=== PATIENT | female | born 1965 | race Caucasian/White ===

== ENCOUNTER 2017-05-09 12:49 | Emergency (ER) | payer OTHER ==
[2017-05-09 12:49] VITALS: BMI 25.7
[2017-05-09] MEDS ORDERED: Sodium Chloride 0.9% 500 ML IV ONE (13:58)
[2017-05-09] MEDS ORDERED: MethylPREDNISolone 40 mg Vial ONE (14:20)
[2017-05-09] MEDS ORDERED: Sodium Chloride 0.9% 1,000 ML ONE (14:20)
[2017-05-09 14:38] LABS: BASO % 0.4 % (0.0-2.0); EOS % 0.3 % (0.0-4.0); HEMATOCRIT 34.4 % (34.0-47.0); LYMPH # 0.5 K/uL (1.0-4.3); LYMPH % 11.9 % (20.0-40.0); MEAN CELL VOLUME 83.1 fL (81.0-99.0); MEAN CORPUSCULAR HEMOGLOBIN 27.4 pg (27.0-31.0); MEAN CORPUSCULAR HGB CONC 32.9 g/dL (33.0-37.0); MONO # 0.5 K/uL (0.0-0.8); MONO % 10.6 % (0.0-10.0); NRBC % 0.1 % (0.0-2.0); WHITE BLOOD COUNT 4.5 K/uL (4.8-10.8)
[2017-05-09 14:47] LABS: CHLORIDE 103 mmol/L (98-107); POTASSIUM 3.2 mmol/L (3.6-5.2); SODIUM 136 mmol/L (132-148)
[2017-05-09 14:49] LABS: ALB/GLOB RATIO 0.9 (1.0-2.1); ALKALINE PHOSPHATASE 73 U/L (38-126); AST/SGOT 78 U/L (14-36); BILIRUBIN,TOTAL 0.7 mg/dL (0.2-1.3); CARBON DIOXIDE 22 mmol/L (22-30); GFR AFRICAN-AMERICAN > 60
[2017-05-09 14:50] LABS: ALT/SGPT 94 U/L (9-52); BLOOD UREA NITROGEN 19 mg/dL (7-17); CALCIUM 8.7 mg/dl (8.6-10.4); GLUCOSE,RANDOM 100 mg/dL (65-105)
--- NOTE | 2017-05-09 15:50 | C.PDOC ---
History Of Present Illness 52 year old female presents to the ED for evaluation of cough that is productive of white sputum x 2 days. Patient notes symptoms are associated with post-tussive emesis. She denies fever, chills, hemoptysis, abdominal pain, diarrhea, or recent travel. Time Seen by Provider: 05/09/17 13:32 Chief Complaint (Nursing): Chest Pain History Per: Patient History/Exam Limitations: no limitations Onset/Duration Of Symptoms: Days (2) Current Symptoms Are (Timing): Still Present Recent travel outside of the [place]: No Additional History Per: Patient Past Medical History Reviewed: Historical Data, Nursing Documentation, Vital Signs Vital Signs: Last Vital Signs Temp 97.5 F L 05/09/17 16:25 Pulse 80 05/09/17 16:25 Resp 20 05/09/17 16:25 BP 97/59 L 05/09/17 16:25 Pulse Ox 96 05/09/17 18:10 - Medical History PMH: Anemia, Hypothyroidism Surgical History: No Surg Hx Family History: States: Unknown Family Hx - Social History Hx Alcohol Use: No Hx Substance Use: No - Immunization History Hx Tetanus Toxoid Vaccination: No Hx Influenza Vaccination: No Hx Pneumococcal Vaccination: No Review Of Systems Constitutional: Negative for: Fever, Chills Respiratory: Positive for: Cough, Sputum (white ) Gastrointestinal: Positive for: Vomiting (post-tussive ). Negative for: Abdominal Pain Physical Exam - Physical Exam Appears: Non-toxic, No Acute Distress, Other (constantly coughing ) Skin: Normal Color, Warm, Dry Head: Atraumatic, Normacephalic Eye(s): bilateral: Normal Inspection Ear(s): Bilateral: Normal Nose: Normal, No Discharge Oral Mucosa: Moist Throat: Normal, No Erythema, No Exudate Neck: Normal ROM, Supple Chest: Symmetrical, No Deformity, No Tenderness Cardiovascular: Rhythm Regular, No Murmur Respiratory: Normal Breath Sounds, No Rales, No Rhonchi, No Wheezing Gastrointestinal/Abdominal: Soft, No Tenderness, No Guarding, No Rebound Extremity: Normal ROM, Capillary Refill (less than 2 seconds ) Neurological/Psych: Oriented x3, Normal Speech, Normal Cognition Gait: Steady ED Course And Treatment - Laboratory Results Result Diagrams: 05/09/17 14:29 05/09/17 14:29 O2 Sat by Pulse Oximetry: 96 (on RA) Pulse Ox Interpretation: Normal - Other Rad CXR X-Ray: Interpreted by Me, Viewed By Me, Read By Radiologist Interpretation: HISTORY: SOB, cough, fever. COMPARISON: No prior. TECHNIQUE : Chest PA and lateral. FINDINGS: LUNGS: No active pulmonary disease. PLEURA: No significant pleural effusion identified. No pneumothorax apparent. CARDIOVASCULAR: Normal. OSSEOUS STRUCTURES: No significant abnormalities. VISUALIZED UPPER ABDOMEN: Normal. OTHER FINDINGS: None. IMPRESSION: No acute cardiopulmonary disease appreciated. Medical Decision Making Medical Decision Making: Progress: EKG, CXR ordered and reviewed. Solu-Medrol IVP and IV Fluids administered. On re-exam, the patient reports improvement of symptoms. Lungs are CTA, heart is RRR, abdomen is soft, non-tender and tolerating PO well. Ambulatory in the ED with steady gait. Follow up with the medical doctor/clinic within 1-2 days. Return if worsened. Disposition - Disposition Referrals: Blu Craig MD [Staff Provider] - Disposition: HOME/ ROUTINE Disposition Time: 15:47 Condition: GOOD Additional Instructions: Follow up with the medical doctor/ clinic within 1-2 days. Return if worsened. Prescriptions: Benzonatate [Tessalon Perles] 200 mg PO TID PRN #21 sgl PRN Reason: Cough Loratadine [Claritin] 10 mg PO DAILY #10 tab predniSONE [Prednisone] 20 mg PO BID #10 tab Instructions: Acute Bronchitis (ED) Forms: [facility] [employer] [facility] (Swedish) - Clinical Impression Clinical Impression: Bronchitis - PA / GARMENT FOLDER / Resident Statement MD/DO has reviewed & agrees with the documentation as recorded. - Scribe Statement The provider has reviewed the documentation as recorded by the Scribe (Melisa Craig) All medical record entries made by the Scribe were at my direction and personally dictated by me. I have reviewed the chart and agree that the record accurately reflects my personal performance of the history, physical exam, medical decision making, and the department course for this patient. I have also personally directed, reviewed, and agree with the discharge instructions and disposition.
--- NOTE | 2017-05-09 16:15 | RAD ---
HISTORY: SOB, cough, fever COMPARISON: No prior. TECHNIQUE: Chest PA and lateral FINDINGS: LUNGS: No active pulmonary disease. PLEURA: No significant pleural effusion identified. No pneumothorax apparent. CARDIOVASCULAR: Normal. OSSEOUS STRUCTURES: No significant abnormalities. VISUALIZED UPPER ABDOMEN: Normal. OTHER FINDINGS: None. IMPRESSION: No acute cardiopulmonary disease appreciated.
[2017-05-09 16:26] VITALS: BP 97/59; PULSE 80; RESP 20; TEMP 97.5
[2017-05-09 18:05] VITALS: O2SAT 96
--- NOTE | 2017-05-11 22:28 | CARD ---
APPROVED REPORT EKG Measurement Heart [id number] <Conclusion> Sinus tachycardia Cannot rule out Anterior infarct, age undetermined Abnormal ECG
== END 2017-05-09 16:00 | disposition home or self-care (01) ==
LOC: C.ER 12:49
DX: J40 Bronchitis, not specified as acute or chronic (principal)
CPT/HCPCS: 71020; 80053; 83880; 85025; 93005; 96374; 99285; J2930; J7040

== ENCOUNTER 2017-12-14 14:50 | Emergency (ER) | payer OTHER ==
[2017-12-14 14:50] VITALS: BMI 25.7
[2017-12-14 14:57] VITALS: BP 137/84; PULSE 89; RESP 18; TEMP 98.4; O2SAT 98
--- NOTE | 2017-12-14 15:26 | C.PDOC ---
History Of Present Illness 52 yo female come in for evaluation of left wrist pain over radial aspect for past 2-3 months gradually worsen. Pain is localized, worse with thumb movement. Pt denies known trauma or injury, denies weakness, sensory or vascular deficits to left hand. Pt admits, was seen by PMD, , had xray done with normal results. Pt has scheduled appointment for hand specialist in February, " in so much pain, unable to wait". Ambulate to Ed for evaluation, not in any apparent distress. Time Seen by Provider: 12/14/17 15:03 Chief Complaint (Nursing): Upper Extremity Problem/Injury History Per: Patient Onset/Duration Of Symptoms: Gradual Past Medical History Reviewed: Historical Data, Nursing Documentation, Vital Signs Vital Signs: Last Vital Signs Temp 98.4 F 12/14/17 14:54 Pulse 89 12/14/17 14:54 Resp 18 12/14/17 14:54 BP 137/84 12/14/17 14:54 Pulse Ox 98 12/14/17 15:26 - Medical History PMH: Anemia, Hypothyroidism Denies: Chronic Kidney Disease Family History: States: Unknown Family Hx - Social History Hx Alcohol Use: No Hx Substance Use: No - Immunization History Hx Tetanus Toxoid Vaccination: No Hx Influenza Vaccination: No Hx Pneumococcal Vaccination: No Review Of Systems Except As Marked, All Systems Reviewed And Found Negative. Constitutional: Negative for: Fever, Chills Musculoskeletal: Positive for: Hand Pain Skin: Negative for: Rash, Bruising Neurological: Negative for: Weakness, Numbness Physical Exam - Physical Exam Appears: Well, Non-toxic, No Acute Distress Skin: Normal Color, Warm, No Rash, No Ecchymosis Extremity: Normal ROM (mild discomfort to Left thumb abduction/flexion due to pain. No neurovascular deficits.), Tenderness (over radial aspect left wrist. NO edema, no erythema, no palpable deformity.), Capillary Refill (less than 2 sec to left hand), No Deformity, No Swelling DTR: Bicep (L): 2+, Tricep (L): 2+ Neurological/Psych: Oriented x3, Normal Speech, Normal Motor, Normal Sensation ED Course And Treatment O2 Sat by Pulse Oximetry: 98 Progress Note: On r-eval, pt is afebrile, hemodynamicalys table. non-toxic. left wrist: exam c/w radial tenderness over wrist. No defomrity. FAROM, no neurovascular deficits, no skin changes. Volar splint applied to left wrist. Pt advised and ref. to f/u with PMD, hand specialist in 2-3 days for re-eval. return if any new changes. Disposition Counseled Patient/Family Regarding: Diagnosis, Need For Followup, Rx Given - Disposition Referrals: Maile Vazquez MD [Staff Provider] - Disposition: HOME/ ROUTINE Disposition Time: 15:23 Condition: STABLE Additional Instructions: Splint for 1-2 weeks take medication as prescribed Follow up with PMD, hand specialist in 2-3 days for re-evaluation. return to ED if any new changes. Prescriptions: Prednisone [Deltasone] 40 mg PO DAILY #6 tablet traMADol [Ultram] 50 mg PO TID #7 tab Instructions: Carpal Tunnel Syndrome, Tendonitis Forms: [facility] (Liberian) - Clinical Impression Clinical Impression: Thumb tendonitis
== END 2017-12-14 15:34 | disposition home or self-care (01) ==
LOC: C.ER 14:50
DX: M77.9 Enthesopathy, unspecified (principal)

== ENCOUNTER 2018-08-23 09:07 | Outpatient (CLI) | payer OTHER | END 2018-08-23 09:08 | disposition home or self-care (01) | LOC: C.CARD 09:07 | DX: R07.9 Chest pain, unspecified (principal) ==